=== PATIENT | male | born 1950 ===

== ENCOUNTER 2017-08-10 07:13 | Day surgery (SDC) | payer MEDICARE ==
[2017-08-04 11:14] VITALS: BMI 30.8
[2017-08-10] MEDS ORDERED: Propofol 10 mg/ml Inj (20 ML) ONE (10:03)
[2017-08-10] MEDS ORDERED: Lactated Ringer's 500 ML IV ONE ×2 (10:14)
[2017-08-10] MEDS ORDERED: Midazolam 2 MG/2 ML VIAL ONE (10:15)
[2017-08-10 10:49] VITALS: TEMP 98.8
[2017-08-10 11:09] VITALS: O2SAT 97
[2017-08-10 12:52] VITALS: BP 142/80; PULSE 78; RESP 18
== END 2017-08-10 12:10 | disposition home or self-care (01) ==
LOC: C.ENDO 07:13
PROVIDERS: ATTEND Internal Medicine Gastroenterology
DX: K29.50 Unspecified chronic gastritis without bleeding (principal); D50.9 Iron deficiency anemia, unspecified; K59.00 Constipation, unspecified; D64.9 Anemia, unspecified; D12.2 Benign neoplasm of ascending colon; B96.81 Helicobacter pylori [H. pylori] as the cause of diseases classified elsewhere; K64.8 Other hemorrhoids
CPT/HCPCS: 43239; 45388; 82948; 88305; 88313; 88342; J2250; J2704; J7120